=== PATIENT | male | born 1985 | race African-American/Black ===

== ENCOUNTER 2016-07-15 17:52 | Emergency (ER) | payer OTHER ==
[~2016-07-15] VITALS: Ht 180.3 cm; Wt 75.2 kg
[~2016-07-15 17:52] MED LIST: BENTYL20 MG PO; CITALOPRAM HBR10 MG PO; CLINDAMYCIN HC300 MG PO; DICYCLOMINE HCL20 MG PO; DIPHENOXYLATE/1 EACH PO; DONNATAL1 TABLET PO; HYDROCODON-ACE1 EAC7 PO; KEFLEX500 MG PO; MOTRIN800 MG PO; NAPROSYN500 MG PO; NAPROXEN500 MG PO; NORCO 5/3251 TABLET PO; ONDANSETRON ODT4 MG PO; OXYCODONE HCL10 MG PO; OXYCODONE HCL5 MG PO; PERCOCET 10/1 TABLET PO; PERCOCET 5/31 TABLET PO; PRILOSEC OTC20 MG PO; PROTONIX40 MG PO; TRAMADOL HCL50 MG PO; TYLENOL EXTRA500 MG PO; ULTRAM50 MG PO; ZANTAC150 MG PO; ZOFRAN ODT4 MG PO; ZOFRAN4 MG PO
[2016-07-15 18:44] LABS: HEMATOCRIT 49.3 % (38.0-50.0); MCH 31.5 PG (29.0-34.0); MCHC 33.9 G/DL (30.0-36.0); MEAN PLAT.VOLUME 8.4 uM^3 (9.0-12.4); PLATELET COUNT 316 K/uL (156-360); RBC DIS.WIDTH-CV 11.9 % (11.8-14.6); WHITE BLOOD COUNT 6.2 K/uL (4.1-10.2)
[2016-07-15 18:53] LABS: CHLORIDE 102 mEq/L (99-109); SODIUM 138 mEq/L (136-147)
[2016-07-15 18:55] LABS: GLUCOSE 79 mg/dL (70-99)
[2016-07-15 18:57] LABS: ANION GAP 9 MEQ/L (2-14); TOTAL BILIRUBIN 0.6 mg/dL (0.0-1.0)
[2016-07-15 18:59] LABS: ALKALINE PHOSPHATASE 83 IU/L (3-129); GFR ESTIMATE (CALCULATED) > 59 mL/min/
[2016-07-15 19:00] LABS: UREA NITROGEN (BUN) 9 mg/dL (9-23)
[2016-07-15 19:02] LABS: LIPASE 18 U/L (1.0-51.0)
[2016-07-15] MEDS ORDERED: ZOFRAN ODT4 MG PO (21:42)
[2016-07-15 22:08] VITALS: BP 126/77
[2016-07-16] MEDS ORDERED: NORCO 5/3251 TABLET PO (23:52)
[2016-07-16] MEDS ORDERED: CIPRO500 MG PO (23:52)
[2016-07-16] MEDS ORDERED: FLAGYL500 MG PO (23:52)
== END 2016-07-15 22:08 | disposition home or self-care (01) ==
LOC: EME 17:52
PROVIDERS: Physician Assistant
DX: K29.70 Gastritis, unspecified, without bleeding (principal); F17.200 Nicotine dependence, unspecified, uncomplicated
CPT/HCPCS: 80053; 81003; 83690; 85027; 99281; 99283; J2270; J2405; J7030; S0028

== ENCOUNTER 2016-07-16 19:31 | Emergency (ER) | payer OTHER ==
[~2016-07-16] VITALS: Ht 180.3 cm; Wt 77.7 kg
[2016-07-16 20:43] LABS: MCH 31.4 PG (29.0-34.0); MCHC 33.9 G/DL (30.0-36.0); MCV 92.8 FL (86-99); MEAN PLAT.VOLUME 8.7 uM^3 (9.0-12.4); PLATELET COUNT 316 K/uL (156-360); RBC DIS.WIDTH-CV 11.6 % (11.8-14.6); RBC DIS.WIDTH-SD 39.7 % (39-53); RED BLOOD COUNT 4.74 M/uL (4.00-5.50); WHITE BLOOD COUNT 7.2 K/uL (4.1-10.2)
[2016-07-16 20:53] LABS: CHLORIDE 107 mEq/L (99-109); POTASSIUM 3.8 mEq/L (3.7-5.4); SODIUM 140 mEq/L (136-147)
[2016-07-16 20:55] LABS: GLUCOSE 87 mg/dL (70-99)
[2016-07-16 20:56] LABS: ANION GAP 8 MEQ/L (2-14)
[2016-07-16 20:57] LABS: TOTAL BILIRUBIN 0.5 mg/dL (0.0-1.0)
[2016-07-16 20:58] LABS: ALKALINE PHOSPHATASE 75 IU/L (3-129); GFR ESTIMATE (CALCULATED) > 59 mL/min/
[2016-07-16 21:00] LABS: UREA NITROGEN (BUN) 8 mg/dL (9-23)
[2016-07-16 21:02] LABS: LIPASE 16 U/L (1.0-51.0)
[2016-07-16 21:53] LABS: ADD MIUA? YES; BILIRUBIN NEGATIVE; BLOOD NEGATIVE; COLOR YELLOW ((YELLOW)); GLUCOSE (STRIP) NEGATIVE; KETONES NEGATIVE; LEUKOCYTES NEGATIVE; NITRITE NEGATIVE; PROTEIN (STRIP) NEGATIVE; SPECIFIC GRAVITY 1.017 (1.000-1.030); UROBILINOGEN 0.2 MG/DL (0.2-1.0)
[2016-07-16 21:57] LABS: AMYLASE 82 IU/L (1-118)
[2016-07-16 22:23] LABS: BACTERIA NONE SEEN /HPF; EPITHELIAL CELLS NONE SEEN /HPF; MUCUS TRACE /LPF; RED BLOOD CELLS NONE SEEN /HPF (0-5); UCUL ADDED? NO; WHITE BLOOD CELLS NONE SEEN /HPF (0-5)
[2016-07-16] MEDS ORDERED: CIPRO500 MG PO (23:52)
[2016-07-16] MEDS ORDERED: NORCO 5/3251 TABLET PO (23:52)
[2016-07-16] MEDS ORDERED: FLAGYL500 MG PO (23:52)
[2016-07-17 00:02] VITALS: BP 135/85
== END 2016-07-17 00:03 | disposition home or self-care (01) ==
LOC: EME 19:31
DX: K29.70 Gastritis, unspecified, without bleeding (principal); K52.89 Other specified noninfective gastroenteritis and colitis; F17.200 Nicotine dependence, unspecified, uncomplicated
CPT/HCPCS: 74177; 80053; 81003; 82150; 83690; 85027; 99281; 99284; J2405; J3010; J7030

== ENCOUNTER 2016-09-02 17:24 | Emergency (ER) | payer OTHER ==
[~2016-09-02] VITALS: Ht 182.9 cm; Wt 80.0 kg
[~2016-09-02 17:24] MED LIST changes: +CIPRO500 MG PO; +FLAGYL500 MG PO
[2016-09-02 18:42] LABS: MCH 31.3 PG (29.0-34.0); MCV 94.8 FL (86-99); MEAN PLAT.VOLUME 9.2 uM^3 (9.0-12.4); PLATELET COUNT 273 K/uL (156-360); RBC DIS.WIDTH-CV 12.8 % (11.8-14.6); RED BLOOD COUNT 4.85 M/uL (4.00-5.50); WHITE BLOOD COUNT 5.4 K/uL (4.1-10.2)
[2016-09-02 18:50] LABS: CHLORIDE 105 mEq/L (99-109); SODIUM 140 mEq/L (136-147)
[2016-09-02 18:52] LABS: GLUCOSE 81 mg/dL (70-99)
[2016-09-02 18:54] LABS: ANION GAP 10 MEQ/L (2-14); TOTAL BILIRUBIN 0.8 mg/dL (0.0-1.0)
[2016-09-02 18:56] LABS: ALKALINE PHOSPHATASE 97 IU/L (3-129); GFR ESTIMATE (CALCULATED) > 59 mL/min/
[2016-09-02 18:57] LABS: UREA NITROGEN (BUN) 12 mg/dL (9-23)
[2016-09-02 18:59] LABS: LIPASE 42 U/L (1.0-51.0)
[2016-09-02 20:14] LABS: ADD MIUA? YES; BILIRUBIN NEGATIVE; BLOOD NEGATIVE; COLOR YELLOW ((YELLOW)); GLUCOSE (STRIP) NEGATIVE; KETONES 80; LEUKOCYTES TRACE; NITRITE NEGATIVE; PROTEIN (STRIP) NEGATIVE
[2016-09-02 20:18] LABS: BACTERIA NONE SEEN /HPF; EPITHELIAL CELLS RARE /HPF; MUCUS TRACE /LPF; RED BLOOD CELLS 0-5 /HPF (0-5); UCUL ADDED? NO; WHITE BLOOD CELLS 0-5 /HPF (0-5)
[2016-09-02] MEDS ORDERED: PEPCID20 MG PO (20:45)
[2016-09-02 21:15] VITALS: BP 117/71
[2016-09-03 13:54] LABS: CHLAMYDIA TRACHOMATIS POSITIVE; NEISSERIA GONORRHOEAE NEGATIVE
== END 2016-09-02 21:16 | disposition home or self-care (01) ==
LOC: EME 17:24
PROVIDERS: Physician Assistant Medical
DX: K29.70 Gastritis, unspecified, without bleeding (principal); F17.200 Nicotine dependence, unspecified, uncomplicated
CPT/HCPCS: 74177; 80053; 81003; 83690; 85027; 87086; 87491; 87591; 99281; 99284; J2270; J2405; J7030

== ENCOUNTER 2016-12-02 17:03 | Emergency (ER) | payer OTHER ==
[~2016-12-02] VITALS: Ht 193 cm; Wt 79.1 kg
[~2016-12-02 17:03] MED LIST changes: +PEPCID20 MG PO
[2016-12-02 18:22] LABS: HEMATOCRIT 43.2 % (38.0-50.0); MCH 32.1 PG (29.0-34.0); MCHC 34.5 G/DL (30.0-36.0); MCV 93.1 FL (86-99); MEAN PLAT.VOLUME 9.1 uM^3 (9.0-12.4); PLATELET COUNT 254 K/uL (156-360); RBC DIS.WIDTH-CV 11.9 % (11.8-14.6); RBC DIS.WIDTH-SD 41.2 % (39-53); RED BLOOD COUNT 4.64 M/uL (4.00-5.50); WHITE BLOOD COUNT 4.7 K/uL (4.1-10.2)
[2016-12-02 18:34] LABS: CHLORIDE 106 mEq/L (99-109); SODIUM 136 mEq/L (136-147)
[2016-12-02 18:36] LABS: GLUCOSE 94 mg/dL (70-99)
[2016-12-02 18:38] LABS: ANION GAP 7 MEQ/L (2-14); TOTAL BILIRUBIN 0.4 mg/dL (0.0-1.0)
[2016-12-02 18:40] LABS: ALKALINE PHOSPHATASE 83 IU/L (3-129)
[2016-12-02 18:41] LABS: GFR ESTIMATE (CALCULATED) > 59 mL/min/; UREA NITROGEN (BUN) 7 mg/dL (9-23)
[2016-12-02 18:43] LABS: LIPASE 33 U/L (1.0-51.0)
[2016-12-02 19:33] LABS: AMYLASE 88 IU/L (1-118)
[2016-12-02 20:34] LABS: ADD MIUA? YES; BILIRUBIN NEGATIVE; BLOOD NEGATIVE; COLOR YELLOW ((YELLOW)); GLUCOSE (STRIP) NEGATIVE; KETONES NEGATIVE; LEUKOCYTES NEGATIVE; NITRITE NEGATIVE; PROTEIN (STRIP) NEGATIVE; SPECIFIC GRAVITY 1.017 (1.000-1.030); UROBILINOGEN 0.2 MG/DL (0.2-1.0)
[2016-12-02 20:36] LABS: BACTERIA RARE /HPF; EPITHELIAL CELLS RARE /HPF; MUCUS 1+ /LPF; RED BLOOD CELLS 0-5 /HPF (0-5); UCUL ADDED? NO; WHITE BLOOD CELLS 0-5 /HPF (0-5)
[2016-12-02] MEDS ORDERED: ZANTAC150 MG PO (20:46)
[2016-12-02 21:22] VITALS: BP 132/80
== END 2016-12-02 21:23 | disposition home or self-care (01) ==
LOC: EME 17:03
DX: K29.70 Gastritis, unspecified, without bleeding (principal); F17.200 Nicotine dependence, unspecified, uncomplicated
CPT/HCPCS: 80053; 81003; 82150; 83690; 85027; 99281; 99285; J3010; J7030

== ENCOUNTER 2017-01-31 21:32 | Emergency (ER) | payer OTHER ==
[~2017-01-31] VITALS: Ht 182.9 cm; Wt 78.4 kg
[2017-01-31 22:39] LABS: HEMATOCRIT 42.8 % (38.0-50.0); MCH 31.9 PG (29.0-34.0); MCHC 33.2 G/DL (30.0-36.0); MCV 96.2 FL (86-99); MEAN PLAT.VOLUME 9.2 uM^3 (9.0-12.4); PLATELET COUNT 212 K/uL (156-360); RBC DIS.WIDTH-CV 12.3 % (11.8-14.6); RBC DIS.WIDTH-SD 44.1 % (39-53); RED BLOOD COUNT 4.45 M/uL (4.00-5.50)
[2017-01-31 22:50] LABS: CHLORIDE 111 mEq/L (99-109); POTASSIUM 4.1 mEq/L (3.7-5.4); SODIUM 144 mEq/L (136-147)
[2017-01-31 22:52] LABS: GLUCOSE 83 mg/dL (70-99)
[2017-01-31 22:54] LABS: ANION GAP 7 MEQ/L (2-14); TOTAL BILIRUBIN 0.3 mg/dL (0.0-1.0)
[2017-01-31 22:56] LABS: ALKALINE PHOSPHATASE 99 IU/L (3-129); GFR ESTIMATE (CALCULATED) > 59 mL/min/
[2017-01-31 22:57] LABS: UREA NITROGEN (BUN) 7 mg/dL (9-23)
[2017-01-31 22:59] LABS: LIPASE 26 U/L (1.0-51.0)
[2017-01-31] MEDS ORDERED: BENTYL20 MG PO (23:50)
[2017-01-31] MEDS ORDERED: NAPROSYN500 MG PO (23:50)
[2017-01-31] MEDS ORDERED: ZOFRAN ODT4 MG PO (23:50)
[2017-02-01 00:15] VITALS: BP 122/78
== END 2017-02-01 00:29 | disposition home or self-care (01) ==
LOC: EME 21:32
PROVIDERS: Nurse Practitioner Family
DX: K52.9 Noninfective gastroenteritis and colitis, unspecified (principal); Z87.19 Personal history of other diseases of the digestive system; F17.200 Nicotine dependence, unspecified, uncomplicated
CPT/HCPCS: 80053; 81003; 83690; 85027; 99281; 99283; J1885; J7030

== ENCOUNTER → 2017-02-05 18:11 | Emergency (ER) | payer OTHER | END | disposition left against medical advice (07) | LOC: EME 18:11 | DX: R10.9 Unspecified abdominal pain (principal); Z53.21 Procedure and treatment not carried out due to patient leaving prior to being seen by health care provider ==

== ENCOUNTER 2017-02-18 16:35 | Emergency (ER) | payer OTHER ==
[~2017-02-18] VITALS: Ht 182.9 cm; Wt 77.4 kg
[2017-02-18 17:09] LABS: HEMATOCRIT 46.8 % (38.0-50.0); MCH 32.2 PG (29.0-34.0); MCHC 33.5 G/DL (30.0-36.0); MCV 96.1 FL (86-99); MEAN PLAT.VOLUME 9.2 uM^3 (9.0-12.4); PLATELET COUNT 239 K/uL (156-360); RBC DIS.WIDTH-CV 12.8 % (11.8-14.6); RBC DIS.WIDTH-SD 45.7 % (39-53); RED BLOOD COUNT 4.87 M/uL (4.00-5.50); WHITE BLOOD COUNT 5.4 K/uL (4.1-10.2)
[2017-02-18 17:21] LABS: CHLORIDE 107 mEq/L (99-109); SODIUM 140 mEq/L (136-147)
[2017-02-18 17:22] LABS: AMYLASE 85 IU/L (1-118)
[2017-02-18 17:23] LABS: GLUCOSE 89 mg/dL (70-99)
[2017-02-18 17:24] LABS: ANION GAP 9 MEQ/L (2-14)
[2017-02-18 17:25] LABS: TOTAL BILIRUBIN 0.6 mg/dL (0.0-1.0)
[2017-02-18 17:27] LABS: ALKALINE PHOSPHATASE 92 IU/L (3-129); GFR ESTIMATE (CALCULATED) > 59 mL/min/
[2017-02-18 17:28] LABS: UREA NITROGEN (BUN) 13 mg/dL (9-23)
[2017-02-18 17:30] LABS: LIPASE 17 U/L (1.0-51.0)
[2017-02-18 17:51] LABS: ADD MIUA? NO; BILIRUBIN NEGATIVE; BLOOD NEGATIVE; COLOR YELLOW ((YELLOW)); GLUCOSE (STRIP) NEGATIVE; KETONES NEGATIVE; LEUKOCYTES NEGATIVE; NITRITE NEGATIVE; PROTEIN (STRIP) NEGATIVE; SPECIFIC GRAVITY 1.035 (1.000-1.030); UCUL ADDED? NO; UROBILINOGEN 0.2 MG/DL (0.2-1.0)
[2017-02-18 17:58] LABS: AMPHETAMINE NEGATIVE (500 ng/mL); BARBITURATES NEGATIVE (200 ng/mL); BENZODIAZEPINES NEGATIVE (150 ng/mL); COCAINE NEGATIVE (150 ng/mL); INTERNAL CONTROLS VALID? YES; METHADONE NEGATIVE (200 ng/mL); METHAMPHETAMINE NEGATIVE (500 ng/mL); OPIATES (MORPHINE) NEGATIVE (100 ng/mL); OXYCODONE NEGATIVE (100 ng/mL); PHENCYCLIDINE NEGATIVE (25 ng/mL); PROPOXYPHENE NEGATIVE (300 ng/mL); THC CANNABINOIDS NEGATIVE (50 ng/mL); TRICYCLIC ANTIDEPRESSANTS NEGATIVE (300 ng/mL)
[2017-02-18] MEDS ORDERED: BENTYL20 MG PO (19:30)
[2017-02-18] MEDS ORDERED: ZOFRAN ODT4 MG PO (19:30)
[2017-02-18 20:26] VITALS: BP 94/50
== END 2017-02-18 20:32 | disposition home or self-care (01) ==
LOC: EME 16:35
PROVIDERS: Nurse Practitioner Family
DX: R10.12 Left upper quadrant pain (principal); R11.2 Nausea with vomiting, unspecified; R42 Dizziness and giddiness; F17.200 Nicotine dependence, unspecified, uncomplicated
CPT/HCPCS: 74176; 80053; 81003; 82150; 83690; 85027; 99281; 99285; J0500; J2405; J7030